=== PATIENT | female | born 1955 ===

== ENCOUNTER 2018-05-17 16:15 | Emergency (ER) | payer MEDICARE ==
[2018-05-17 16:49] VITALS: BP 133/73; PULSE 77; RESP 18; TEMP 97.9; O2SAT 99
[2018-05-17] MEDS ORDERED: Albuterol-Ipratrop 3 mg / 0.5 (3 ml) UD INH STA (18:41)
[2018-05-17] MEDS ORDERED: guaiFENesin 200 mg/10 ml Syrup UD PO STA (18:43)
[2018-05-17] MEDS ORDERED: Albuterol-Ipratrop 3 mg / 0.5 (3 ml) UD ONE (18:50)
[2018-05-17] MEDS ORDERED: guaiFENesin 100 mg/5 ml Syrup UD ONE (18:55)
--- NOTE | 2018-05-17 18:56 | ED PDOC ---
HPI: General Adult Time Seen by Provider: 05/17/18 17:46 Chief Complaint (Nursing): ENT Problem Chief Complaint (Provider): ENT Problem History Per: Patient History/Exam Limitations: no limitations Onset/Duration Of Symptoms: Days (x2 weeks) Current Symptoms Are (Timing): Still Present Additional Complaint(s): 63 year old female presents to the ED for evaluation of cough, bilateral ear pain (right greater than left), throat pain, and nasal congestion for the last two weeks. Patient notes she is here visiting from [place], and has had positive sick contact with her daughter, even though her symptoms began before her daughter's did. Denies taking any medications prior to arrival. Otherwise, ( -) fever, (-) chills, (-) chest pain, (-) shortness of breath, (-) nausea, (-) vomiting, (-) facial pain, (-) vision changes, (-) abdominal pain. PMD: in [place] Past Medical History Reviewed: Historical Data, Nursing Documentation, Vital Signs Vital Signs: Last Vital Signs Temp 97.9 F 05/17/18 16:46 Pulse 77 05/17/18 16:46 Resp 18 05/17/18 16:46 BP 133/73 05/17/18 16:46 Pulse Ox 99 05/17/18 20:50 - Medical History PMH: Anxiety, HTN - Surgical History Surgical History: (x2) - Family History Family History: States: Unknown Family Hx - Social History Current smoker - smoking cessation education provided: Yes (1-3 cigarettes daily ) Alcohol: None Drugs: Denies - Home Medications Home Medications: Ambulatory Orders Medication Instructions Recorded Acetaminophen [Acetaminophen 8 650 mg PO Q8 PRN #21 tablet.er 05/17/18 Hour] Albuterol Sulfate [Ventolin Hfa] 1 puff IH Q6 PRN #1 unit 05/17/18 Amoxicillin 875 mg PO BID #14 tab 05/17/18 Benzonatate [Tessalon Perles] 100 mg PO Q8 PRN #21 tab 05/17/18 - Allergies Allergies/Adverse Reactions: Allergies Allergy/AdvReac Type Severity Reaction Status Date / Time ciprofloxacin [From Cipro] Allergy RASH Verified 05/17/18 16:49 Review of Systems ROS Statement: Except As Marked, All Systems Reviewed And Found Negative Constitutional: Negative for: Fever, Chills Eyes: Negative for: Vision Change ENT: Positive for: Ear Pain (bilateral, right greater than left), Nose Congestion, Throat Pain. Negative for: Other (facial pain) Cardiovascular: Negative for: Chest Pain Respiratory: Positive for: Cough. Negative for: Shortness of Breath Gastrointestinal: Negative for: Nausea, Vomiting, Abdominal Pain Genitourinary Female: Negative for: Dysuria, Frequency Musculoskeletal: Negative for: Neck Pain Skin: Negative for: Rash Neurological: Negative for: Weakness, Numbness Physical Exam - Reviewed Nursing Documentation Reviewed: Yes Vital Signs Reviewed: Yes - Physical Exam Comments: GENERAL APPEARANCE: Patient is awake, alert, oriented x 3, in no acute distress. Resting comfortably. SKIN: Warm, dry; (-) cyanosis, (-) rash. EYES: (-) conjunctival pallor, (-) scleral icterus, (-) conjunctival hemorrhage. ENMT: Mucous membranes are moist. TMs: Right: (+) erythema, (+) bulging; Left : unremarkable. Airway patent: (-) stridor. Pharynx: uvula midline (+) erythema, (-) exudate, (-) hypertrophy. Sinuses: (-) tenderness. NECK: Supple, FROM (-) tenderness, (-) stiffness, (-) meningismus, (-) lymphadenopathy. CHEST AND RESPIRATORY: Clear to auscultation bilaterally (-) rales, (-) rhonchi , (-) wheezes; respirations even and nonlabored, speaking in full sentences. HEART AND CARDIOVASCULAR: (-) irregularity; (-) murmur, (-) gallop. ABDOMEN AND GI: Soft; (-) tenderness, (-) guarding; (-) CVA tenderness. EXTREMITIES: (-) deformity NEURO AND PSYCH: Mental status as above; (-) focal findings. Gait steady, speech clear. (-) facial asymmetry. EOMI. - ECG O2 Sat by Pulse Oximetry: 99 (RA) Pulse Ox Interpretation: Normal Medical Decision Making Medical Decision Making: Time: 1840 Initial Impression: otitis media, cough Initial Plan: --CXR --Duoneb 3 ml INH --Robitussin 200 mg PO --Tylenol 650 mg PO --Throat culture --Rapid strep --Re-evaluation 19:48 CXR : NAD, as read by PA. Patient advised that official radiology read of XR is still pending and will call the patient if there is any discrepancy within 24 hours. --Patient will be given Amoxicillin 500 mg PO for otitis media. 2039 Rapid Strep: Negative On re-evaluation, patient reports improvement of symptoms. On exam, patient remains AAOx3, in no acute distress. On exam, neck is supple, lungs CTA, cardiac RRR, abdomen is soft and non-tender, neuro exam shows no focal findings. VSS, stable for discharge. Diagnostic results d/w the patient in great detail. Dx of otitis media, cough, congestion d/w the patient. Based on history, exam and diagnostic results plan will be for discharge and outpatient follow up. Advised to follow up with primary care physician/clinic in 1-2 days without fail. Advised to take medication as prescribed. Return to the emergency room at any time for any new or worsening symptoms. Patient states she fully agrees with and understands discharge instructions. States that she agrees with the plan and disposition. Verbalized and repeated discharge instructions and plan. I have given the patient opportunity to ask any additional questions. Scribe Attestation: Documented by Hoda Brumfield, acting as a scribe for Aimee Tapia PA-C. Provider Scribe Attestation: All medical record entries made by the Scribe were at my direction and personally dictated by me. I have reviewed the chart and agree that the record accurately reflects my personal performance of the history, physical exam, medical decision making, and the department course for this patient. I have also personally directed, reviewed, and agree with the discharge instructions and disposition. Disposition - Clinical Impression Clinical Impression: Right ear pain, Otitis media, Cough in adult patient, Sore throat, Nasal congestion - Patient ED Disposition Is Patient to be Admitted: No Counseled Patient/Family Regarding: Studies Performed, Diagnosis, Need For Followup, Rx Given - Disposition Referrals: [facility] [Outside] Disposition: Routine/Home Disposition Time: 20:43 Condition: STABLE Additional Instructions: FOLLOW UP WITH CLINIC IN 1-2 DAYS. RETURN TO ED WITH ANY NEW OR WORSENING SYMPTOMS. TAKE ANTIBIOTICS UNTIL COMPLETE. Prescriptions: Acetaminophen [Acetaminophen 8 Hour] 650 mg PO Q8 PRN #21 tablet.er PRN Reason: PAIN, FEVER Albuterol Sulfate [Ventolin Hfa] 1 puff IH Q6 PRN #1 unit PRN Reason: Shortness Of Breath Amoxicillin 875 mg PO BID #14 tab Benzonatate [Tessalon Perles] 100 mg PO Q8 PRN #21 tab PRN Reason: Cough Instructions: Ear Infections (Otitis Media), Cough in Adults Forms: [facility] (Chadian) Print Language: VENEZUELAN - POA Present On Arrival: None Results - Lab Results Lab Results: 05/17/18 18:50 Grp A Beta Strep Ag Negative
--- NOTE | 2018-05-18 09:55 | RAD ---
HISTORY: COUGH X 2 WEEKS COMPARISON: No prior. TECHNIQUE: Chest PA and lateral FINDINGS: LUNGS: No active pulmonary disease. PLEURA: No significant pleural effusion identified. No pneumothorax apparent. CARDIOVASCULAR: Atherosclerotic aortic calcifications. Cardiomediastinal silhouette within normal limits. OSSEOUS STRUCTURES: Degenerative changes. VISUALIZED UPPER ABDOMEN: Normal. OTHER FINDINGS: None. IMPRESSION: No active disease.
== END 2018-05-17 21:12 | disposition home or self-care (01) ==
LOC: H.ER 16:15
DX: H66.91 Otitis media, unspecified, right ear (principal); H92.01 Otalgia, right ear; R05 Cough; J02.9 Acute pharyngitis, unspecified; R09.81 Nasal congestion; F17.210 Nicotine dependence, cigarettes, uncomplicated; I10 Essential (primary) hypertension